=== PATIENT | female | born 1990 | race Caucasian/White ===

== ENCOUNTER 2017-01-09 22:35 | Emergency (ER) | payer SELFPAY ==
[~2017-01-09] VITALS: Ht 160 cm; Wt 58.5 kg
[2017-01-09 22:51] VITALS: BP 143/83
== END 2017-01-10 00:18 | disposition left against medical advice (07) ==
LOC: EME 22:35
DX: K08.89 Other specified disorders of teeth and supporting structures (principal); R09.89 Other specified symptoms and signs involving the circulatory and respiratory systems; J02.9 Acute pharyngitis, unspecified; Z53.21 Procedure and treatment not carried out due to patient leaving prior to being seen by health care provider

== ENCOUNTER 2017-01-29 09:28 | Emergency (ER) | payer SELFPAY ==
[~2017-01-29] VITALS: Ht 160 cm; Wt 55.0 kg
[2017-01-29 10:16] LABS: HEMATOCRIT 37.5 % (36.0-46.0); MCH 30.6 PG (29.0-34.0); MCHC 33.1 G/DL (30.0-36.0); MCV 92.6 FL (83-99); MEAN PLAT.VOLUME 9.8 uM^3 (9.5-12.4); PLATELET COUNT 400 K/uL (156-360); RBC DIS.WIDTH-CV 12.8 % (11.8-14.6); RBC DIS.WIDTH-SD 42.1 % (39-53); RED BLOOD COUNT 4.05 M/uL (3.80-5.20); WHITE BLOOD COUNT 10.8 K/uL (4.1-10.2)
[2017-01-29 10:27] LABS: ADD MIUA? YES; BILIRUBIN NEGATIVE; BLOOD MODERATE; COLOR YELLOW ((YELLOW)); GLUCOSE (STRIP) NEGATIVE; KETONES NEGATIVE; LEUKOCYTES NEGATIVE; NITRITE NEGATIVE; PROTEIN (STRIP) NEGATIVE; SPECIFIC GRAVITY 1.023 (1.000-1.030)
[2017-01-29 10:30] LABS: CHLORIDE 109 mEq/L (99-109); SODIUM 144 mEq/L (136-147)
[2017-01-29 10:32] LABS: GLUCOSE 92 mg/dL (70-99)
[2017-01-29 10:33] LABS: ANION GAP 8 MEQ/L (2-14)
[2017-01-29 10:34] LABS: TOTAL BILIRUBIN 0.4 mg/dL (0.0-1.0)
[2017-01-29 10:35] LABS: ALKALINE PHOSPHATASE 97 IU/L (3-129)
[2017-01-29 10:36] LABS: GFR ESTIMATE (CALCULATED) > 59 mL/min/
[2017-01-29 10:37] LABS: UREA NITROGEN (BUN) 14 mg/dL (9-23)
[2017-01-29 10:41] LABS: LIPASE 44 U/L (1.0-51.0)
[2017-01-29 10:44] LABS: QUANTITATIVE HCG < 4.0 MIU/ML
[2017-01-29 10:53] LABS: BACTERIA NONE SEEN /HPF; EPITHELIAL CELLS 2+ /HPF; MUCUS 4+ /LPF; RED BLOOD CELLS 0-5 /HPF (0-5); UCUL ADDED? NO; WHITE BLOOD CELLS 0-5 /HPF (0-5)
[2017-01-29] MEDS ORDERED: FLAGYL500 MG PO (11:50)
[2017-01-29] MEDS ORDERED: CIPRO500 MG PO (11:50)
[2017-01-29] MEDS ORDERED: CLEOCIN300 MG PO (11:50)
[2017-01-29] MEDS ORDERED: ZOFRAN ODT4 MG PO (11:51)
[2017-01-29] MEDS ORDERED: NORCO 5/3251 TABLET PO (12:04)
[2017-01-29 12:10] VITALS: BP 146/85
== END 2017-01-29 12:22 | disposition home or self-care (01) ==
LOC: EME 09:28
PROVIDERS: Nurse Practitioner Family
DX: K52.9 Noninfective gastroenteritis and colitis, unspecified (principal); K04.7 Periapical abscess without sinus; M54.5 Low back pain; Z87.891 Personal history of nicotine dependence
CPT/HCPCS: 74177; 80053; 81003; 83690; 84702; 85027; 99281; 99285; J2405; J7030

== ENCOUNTER 2017-02-03 19:12 | Emergency (ER) | payer SELFPAY ==
[~2017-02-03] VITALS: Ht 160 cm; Wt 58.2 kg
[~2017-02-03 19:12] MED LIST: CIPRO500 MG PO; CLEOCIN300 MG PO; FLAGYL500 MG PO; NORCO 5/3251 TABLET PO; ZOFRAN ODT4 MG PO
[2017-02-03 19:56] LABS: ADD MIUA? YES; BILIRUBIN NEGATIVE; BLOOD NEGATIVE; COLOR YELLOW ((YELLOW)); GLUCOSE (STRIP) NEGATIVE; KETONES NEGATIVE; LEUKOCYTES NEGATIVE; NITRITE NEGATIVE; PROTEIN (STRIP) NEGATIVE; SPECIFIC GRAVITY 1.019 (1.000-1.030); UROBILINOGEN 0.2 MG/DL (0.2-1.0)
[2017-02-03 20:10] LABS: AMORPHOUS URATES CRYSTALS 3+; BACTERIA RARE /HPF; CASTS NONE SEEN /LPF; CRYSTALS PRESENT; EPITHELIAL CELLS 1+ /HPF; MUCUS NONE SEEN /LPF; RED BLOOD CELLS RARE /HPF (0-5); UCUL ADDED? NO; WHITE BLOOD CELLS RARE /HPF (0-5)
[2017-02-03 20:22] LABS: HEMATOCRIT 40.8 % (36.0-46.0); MCHC 31.9 G/DL (30.0-36.0); MCV 94.2 FL (83-99); MEAN PLAT.VOLUME 9.7 uM^3 (9.5-12.4); PLATELET COUNT 488 K/uL (156-360); RBC DIS.WIDTH-SD 44.7 % (39-53); RED BLOOD COUNT 4.33 M/uL (3.80-5.20); WHITE BLOOD COUNT 10.1 K/uL (4.1-10.2)
[2017-02-03 20:30] LABS: CHLORIDE 105 mEq/L (99-109); POTASSIUM 4.8 mEq/L (3.7-5.4); SODIUM 142 mEq/L (136-147)
[2017-02-03 20:33] LABS: GLUCOSE 88 mg/dL (70-99)
[2017-02-03 20:34] LABS: ANION GAP 9 MEQ/L (2-14)
[2017-02-03 20:36] LABS: ALKALINE PHOSPHATASE 104 IU/L (3-129); GFR ESTIMATE (CALCULATED) > 59 mL/min/
[2017-02-03 20:37] LABS: UREA NITROGEN (BUN) 14 mg/dL (9-23)
[2017-02-03 20:41] LABS: TOTAL BILIRUBIN 0.3 mg/dL (0.0-1.0)
[2017-02-03 20:45] LABS: QUANTITATIVE HCG < 4.0 MIU/ML
[2017-02-03] MEDS ORDERED: NORCO 5/3251 TABLET PO (23:53)
[2017-02-03 23:58] VITALS: BP 120/72
[2017-02-06 13:13] LABS: CHLAMYDIA TRACHOMATIS NEGATIVE; NEISSERIA GONORRHOEAE NEGATIVE
== END 2017-02-03 23:59 | disposition home or self-care (01) ==
LOC: EME 19:12
PROVIDERS: Physician Assistant
DX: R10.2 Pelvic and perineal pain (principal); Z88.6 Allergy status to analgesic agent; Z88.8 Allergy status to other drugs, medicaments and biological substances; Z88.1 Allergy status to other antibiotic agents; Z88.5 Allergy status to narcotic agent; Z90.49 Acquired absence of other specified parts of digestive tract; Z87.891 Personal history of nicotine dependence
CPT/HCPCS: 76856; 80053; 81003; 84702; 85027; 87210; 87491; 87591; 99281; 99284; J0696

== ENCOUNTER 2017-02-05 14:30 | Emergency (ER) | payer SELFPAY ==
[~2017-02-05] VITALS: Ht 160 cm; Wt 56.1 kg
[2017-02-05] MEDS ORDERED: FLAGYL500 MG PO (15:33)
[2017-02-05 15:46] VITALS: BP 112/77
== END 2017-02-05 15:46 | disposition home or self-care (01) ==
LOC: EME 14:30
DX: K02.9 Dental caries, unspecified (principal); K03.81 Cracked tooth
CPT/HCPCS: 99281; 99283

== ENCOUNTER 2017-02-09 21:25 | Emergency (ER) | payer SELFPAY ==
[~2017-02-09] VITALS: Ht 160 cm; Wt 54.5 kg
[2017-02-09] MEDS ORDERED: MOTRIN800 MG PO (22:26)
[2017-02-09 22:47] VITALS: BP 124/84
== END 2017-02-09 23:08 | disposition home or self-care (01) ==
LOC: EME 21:25
DX: S93.401A Sprain of unspecified ligament of right ankle, initial encounter (principal); W00.0XXA Fall on same level due to ice and snow, initial encounter; Y93.01 Activity, walking, marching and hiking; F19.10 Other psychoactive substance abuse, uncomplicated; Z76.5 Malingerer [conscious simulation]
CPT/HCPCS: 73610; 99281; 99284

== ENCOUNTER 2017-02-17 11:48 | Emergency (ER) | payer OTHER ==
[~2017-02-17] VITALS: Ht 160 cm; Wt 59.7 kg
[~2017-02-17 11:48] MED LIST changes: +MOTRIN800 MG PO
[2017-02-17 11:53] VITALS: BP 123/77
[2017-02-17] MEDS ORDERED: NAPROSYN500 MG PO (13:53)
== END 2017-02-17 14:15 | disposition home or self-care (01) ==
LOC: EME 11:48
DX: S93.401A Sprain of unspecified ligament of right ankle, initial encounter (principal); W10.9XXA Fall (on) (from) unspecified stairs and steps, initial encounter
CPT/HCPCS: 73610; 73630; 99281; 99283

== ENCOUNTER 2017-03-01 22:51 | Emergency (ER) | payer SELFPAY ==
[~2017-03-01] VITALS: Ht 160 cm; Wt 54.5 kg
[~2017-03-01 22:51] MED LIST changes: +NAPROSYN500 MG PO
[2017-03-02 00:25] LABS: MCH 31.3 PG (29.0-34.0); MCHC 32.9 G/DL (30.0-36.0); MCV 95.1 FL (83-99); MEAN PLAT.VOLUME 9.4 uM^3 (9.5-12.4); PLATELET COUNT 373 K/uL (156-360); RBC DIS.WIDTH-CV 13.2 % (11.8-14.6); RBC DIS.WIDTH-SD 46.3 % (39-53); RED BLOOD COUNT 3.68 M/uL (3.80-5.20); WHITE BLOOD COUNT 8.1 K/uL (4.1-10.2)
[2017-03-02 00:39] LABS: CHLORIDE 104 mEq/L (99-109); SODIUM 140 mEq/L (136-147)
[2017-03-02 00:41] LABS: GLUCOSE 88 mg/dL (70-99)
[2017-03-02 00:42] LABS: ANION GAP 6 MEQ/L (2-14)
[2017-03-02 00:43] LABS: TOTAL BILIRUBIN 0.3 mg/dL (0.0-1.0)
[2017-03-02 00:45] LABS: ALKALINE PHOSPHATASE 79 IU/L (3-129); GFR ESTIMATE (CALCULATED) > 59 mL/min/
[2017-03-02 00:46] LABS: UREA NITROGEN (BUN) 13 mg/dL (9-23)
[2017-03-02 00:48] LABS: LIPASE 39 U/L (1.0-51.0)
[2017-03-02 01:07] LABS: QUANTITATIVE HCG < 4.0 MIU/ML
[2017-03-02 01:38] LABS: ADD MIUA? YES; BILIRUBIN NEGATIVE; BLOOD NEGATIVE; COLOR YELLOW ((YELLOW)); GLUCOSE (STRIP) NEGATIVE; KETONES NEGATIVE; LEUKOCYTES NEGATIVE; NITRITE NEGATIVE; PROTEIN (STRIP) NEGATIVE; SPECIFIC GRAVITY 1.013 (1.000-1.030)
[2017-03-02 01:46] LABS: BACTERIA RARE /HPF; EPITHELIAL CELLS 1+ /HPF; MUCUS TRACE /LPF; RED BLOOD CELLS 0-5 /HPF (0-5); UCUL ADDED? NO; WHITE BLOOD CELLS 0-5 /HPF (0-5)
[2017-03-02] MEDS ORDERED: NORCO 5/3251 TABLET PO (01:51)
[2017-03-02] MEDS ORDERED: DIFLUCAN100 MG PO (01:53)
[2017-03-02 02:13] VITALS: BP 115/63
== END 2017-03-02 02:17 | disposition home or self-care (01) ==
LOC: EME 22:51
PROVIDERS: Emergency Medicine
DX: N83.201 Unspecified ovarian cyst, right side (principal); B37.3 Candidiasis of vulva and vagina; Z88.6 Allergy status to analgesic agent; Z88.8 Allergy status to other drugs, medicaments and biological substances; Z88.1 Allergy status to other antibiotic agents; Z88.5 Allergy status to narcotic agent
CPT/HCPCS: 76856; 80053; 81003; 83690; 84702; 85027; 99281; 99284

== ENCOUNTER 2017-03-11 14:57 | Emergency (ER) | payer SELFPAY ==
[~2017-03-11] VITALS: Ht 160 cm; Wt 58.8 kg
[~2017-03-11 14:57] MED LIST changes: +DIFLUCAN100 MG PO
[2017-03-11 16:34] VITALS: BP 118/79
== END 2017-03-11 16:35 | disposition home or self-care (01) ==
LOC: EME 14:57
DX: F11.10 Opioid abuse, uncomplicated (principal)
CPT/HCPCS: 99281; 99283

== ENCOUNTER 2017-03-19 10:14 | Emergency (ER) | payer SELFPAY ==
[~2017-03-19] VITALS: Ht 160 cm; Wt 58.9 kg
[2017-03-19 10:49] LABS: HEMATOCRIT 41.2 % (36.0-46.0); MCHC 32.5 G/DL (30.0-36.0); MCV 95.4 FL (83-99); PLATELET COUNT 474 K/uL (156-360); RBC DIS.WIDTH-CV 12.7 % (11.8-14.6); RED BLOOD COUNT 4.32 M/uL (3.80-5.20); WHITE BLOOD COUNT 8.8 K/uL (4.1-10.2)
[2017-03-19 11:00] LABS: ADD MIUA? YES; BILIRUBIN NEGATIVE; BLOOD NEGATIVE; COLOR YELLOW ((YELLOW)); GLUCOSE (STRIP) NEGATIVE; KETONES NEGATIVE; LEUKOCYTES NEGATIVE; NITRITE NEGATIVE; PROTEIN (STRIP) NEGATIVE; SPECIFIC GRAVITY 1.016 (1.000-1.030); UROBILINOGEN 0.2 MG/DL (0.2-1.0)
[2017-03-19 11:01] LABS: CHLORIDE 105 mEq/L (99-109); POTASSIUM 5.2 mEq/L (3.7-5.4); SODIUM 141 mEq/L (136-147)
[2017-03-19 11:03] LABS: GLUCOSE 87 mg/dL (70-99)
[2017-03-19 11:03] LABS: BACTERIA NONE SEEN /HPF; EPITHELIAL CELLS 1+ /HPF; MUCUS NONE SEEN /LPF; RED BLOOD CELLS 0-5 /HPF (0-5); UCUL ADDED? NO; WHITE BLOOD CELLS 0-5 /HPF (0-5)
[2017-03-19 11:04] LABS: ANION GAP 11 MEQ/L (2-14)
[2017-03-19 11:05] LABS: TOTAL BILIRUBIN 0.4 mg/dL (0.0-1.0)
[2017-03-19 11:07] LABS: ALKALINE PHOSPHATASE 81 IU/L (3-129); GFR ESTIMATE (CALCULATED) > 59 mL/min/
[2017-03-19 11:08] LABS: UREA NITROGEN (BUN) 23 mg/dL (9-23)
[2017-03-19 11:16] LABS: QUANTITATIVE HCG < 4.0 MIU/ML
[2017-03-19] MEDS ORDERED: CIPRO500 MG PO (13:58)
[2017-03-19] MEDS ORDERED: FLAGYL500 MG PO (13:58)
[2017-03-19] MEDS ORDERED: PERCOCET 5/31 TABLET PO (13:58)
[2017-03-19] MEDS ORDERED: ZOFRAN ODT4 MG PO (14:01)
[2017-03-19 14:21] VITALS: BP 120/68
== END 2017-03-19 14:51 | disposition home or self-care (01) ==
LOC: EME 10:14
DX: K57.32 Diverticulitis of large intestine without perforation or abscess without bleeding (principal); M54.5 Low back pain; R11.2 Nausea with vomiting, unspecified
CPT/HCPCS: 74177; 80053; 81003; 84702; 85027; 99281; 99284; J2270; J2405; J3010; J7030

== ENCOUNTER 2017-03-22 23:15 | Emergency (ER) | payer SELFPAY ==
[~2017-03-22] VITALS: Ht 160 cm; Wt 61.0 kg
[~2017-03-22 23:15] MED LIST changes: +PERCOCET 5/31 TABLET PO
[2017-03-23 00:35] LABS: HEMATOCRIT 39.6 % (36.0-46.0); MCH 31.6 PG (29.0-34.0); MCHC 33.8 G/DL (30.0-36.0); MCV 93.4 FL (83-99); PLATELET COUNT 364 K/uL (156-360); RBC DIS.WIDTH-CV 12.6 % (11.8-14.6); RED BLOOD COUNT 4.24 M/uL (3.80-5.20); WHITE BLOOD COUNT 9.3 K/uL (4.1-10.2)
[2017-03-23 00:42] LABS: MEAN PLAT.VOLUME 11.8 uM^3 (9.5-12.4)
[2017-03-23 00:53] LABS: CHLORIDE 102 mEq/L (99-109); POTASSIUM 4.4 mEq/L (3.7-5.4); SODIUM 141 mEq/L (136-147)
[2017-03-23 00:55] LABS: GLUCOSE 87 mg/dL (70-99)
[2017-03-23 00:56] LABS: ANION GAP 12 MEQ/L (2-14)
[2017-03-23 00:57] LABS: TOTAL BILIRUBIN 0.4 mg/dL (0.0-1.0)
[2017-03-23 00:58] LABS: ALKALINE PHOSPHATASE 83 IU/L (3-129)
[2017-03-23 00:59] LABS: GFR ESTIMATE (CALCULATED) > 59 mL/min/
[2017-03-23 01:00] LABS: UREA NITROGEN (BUN) 14 mg/dL (9-23)
[2017-03-23 01:02] LABS: LIPASE 31 U/L (1.0-51.0)
[2017-03-23 01:14] LABS: QUANTITATIVE HCG < 4.0 MIU/ML
[2017-03-23 02:16] VITALS: BP 119/82
== END 2017-03-23 02:42 | disposition home or self-care (01) ==
LOC: EME 23:15 → EXP 23:15 → EME 03-23 02:42
PROVIDERS: Nurse Practitioner Family
DX: R10.31 Right lower quadrant pain (principal); K59.00 Constipation, unspecified
CPT/HCPCS: 74000; 74177; 80053; 83690; 84702; 85027; 99281; 99285; J2405